=== PATIENT | female | born 1985 | race Caucasian/White ===

== ENCOUNTER 2016-11-08 10:27 | Emergency (ER) | payer OTHER ==
[2016-11-08 10:33] VITALS: BP 112/61
--- NOTE | 2016-11-08 11:39 | UC ---
Tao Cosby Alfonso, scribed for Florina Ann MD on 11/08/16 at 1119 . Dental HPI - HPI Summary HPI Summary: This patient is a 31 year old F presenting to [facility] with a chief complaint of lower dental pain since 3 days ago. She states I feel like someone hit me in the mouth. The patient rates the pain 6/10 in severity. Symptoms aggravated by eating and alleviated by nothing. Patient reports headache, and bilateral ear pain. She denies any PMHx. Patients medications reviewed this visit. Allergies noted. Checked I-STOP reference [id number], no search items - History of Current Complaint Chief Complaint: UCDentalProblem Stated Complaint: DENTAL COMPLAINT Time Seen by Provider: 11/08/16 11:08 Hx Obtained From: Patient Hx Last Menstrual Period: 11/03/16 ?: No Onset/Duration: Sudden Onset, Lasting Days - 3, Still Present Severity: Moderate Pain Intensity: 6 Pain Scale Used: 0-10 Numeric Aggravating: Chewing Alleviating: Nothing Related History: Other - Patient reports headache, and bilateral ear pain. 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 RIGHT HAND, 12/10/14, [facility] [place] [facility] [place] - Family History Known Family History: Positive: Cardiac Disease, Diabetes, Other - Asthma - Social History Alcohol Use: Rare Alcohol Amount: 1 Q 6 MONTHS Substance Use Type: Marijuana Substance Use Comment - Amount & Last Used: RARE MARIJUANA Smoking Status (MU): Never Smoked Tobacco Have You Smoked in the Last Year: No - Immunization History Most Recent Tetanus Shot: 2008 Review of Systems Constitutional: Negative Skin: Negative ENT: Dental Pain - Lower, Ear Ache Respiratory: Negative Cardiovascular: Negative Neurological: Headache All Other Systems Reviewed And Are Negative: Yes Physical Exam Triage Information Reviewed: Yes Appearance: Well-Appearing, Well-Nourished, Pain Distress Vital Signs: Initial Vital Signs Temp 98.5 F 11/08/16 10:29 Pulse 80 11/08/16 10:29 Resp 16 11/08/16 10:29 BP 112/61 11/08/16 10:29 Pulse Ox 100 11/08/16 10:29 Vital Signs Reviewed: Yes Eyes: Positive: Conjunctiva Clear ENT: Positive: Normal ENT inspection, Pharynx normal, TMs normal. Negative: Muffled/hoarse voice Dental: Positive: Other: - Swelling of the gum at tooth 25 with redness, extensive plaque, and poor dentition. Neck: Positive: Supple, Nontender, No Lymphadenopathy Respiratory: Positive: Lungs clear, Normal breath sounds, No respiratory distress, No accessory muscle use Cardiovascular: Positive: RRR, No Murmur, Pulses Normal, Brisk Capillary Refill Musculoskeletal: Positive: Strength Intact, ROM Intact Neurological: Positive: Alert Psychological Exam: Normal Skin Exam: Normal Dental Complaint Course/Dx - Course Course Of Treatment: This patient is a 31 year old F presenting to [facility] with a chief complaint of lower dental pain since 3 days ago. She states I feel like someone hit me in the mouth. The patient rates the pain 6/10 in severity. Symptoms aggravated by eating and alleviated by nothing. Patient reports headache, and bilateral ear pain. She denies any PMHx. Patients medications reviewed this visit. Allergies noted. Checked I-STOP reference [id number]. Patient will be discharged with prescription and follow up from PCP and dentist. Pt is agreeable with this plan. - Differential Dx/Diagnosis Differential Diagnosis/Dx: Dental Abscess, Dental Caries, Gingivitis Provider Diagnoses: Dental abscess. Discharge - Discharge Plan Condition: Stable Disposition: HOME Prescriptions: Amoxicillin/Clavulanate TAB* [Augmentin TAB 875*] 875 mg PO BID #28 tab traMADol TAB* [Ultram*] 50 mg PO Q6HR PRN #12 tab MDD 4 PRN Reason: Pain Patient Education Materials: Dental Abscess (ED) Referrals: Jaswinder Carroll MD [Primary Care Provider] - 2 Days Additional Instructions: FOLLOW UP WITH YOUR DENTIST SOON POSSIBLE. The documentation as recorded by the Tao giraldo Alfonso accurately reflects the service I personally performed and the decisions made by , Florina Ann MD.
== END 2016-11-08 11:35 | disposition home or self-care (01) ==
LOC: UCEAST 10:27
DX: K04.7 Periapical abscess without sinus (principal); Z88.5 Allergy status to narcotic agent; Z88.2 Allergy status to sulfonamides; F12.90 Cannabis use, unspecified, uncomplicated
CPT/HCPCS: 99212; G0463

== ENCOUNTER 2017-02-06 14:49 | Emergency (ER) | payer OTHER ==
[2017-02-06 14:56] VITALS: BP 113/59
--- NOTE | 2017-02-06 15:35 | UC ---
Throat Pain/Nasal Reji HPI - HPI Summary HPI Summary: SORE THROAT, FEVER AND WHITE SPOTS ON TONSILS SINCE THIS MORNING. NO RASHES. NO ABDOMINAL PAIN. - History of Current Complaint Chief Complaint: UCGeneralIllness Stated Complaint: SPOTS ON THROAT Time Seen by Provider: 02/06/17 15:08 Hx Obtained From: Patient Hx Last Menstrual Period: 01/28/17 Onset/Duration: Gradual Onset, Lasting Hours Severity: Moderate Associated Signs & Symptoms: Positive: Dysphagia, Hoarseness, Fever - Epiglottits Risk Factors Epiglottis Risk Factors: Negative - Allergies/Home Medications Allergies/Adverse Reactions: Allergies Allergy/AdvReac Type Severity Reaction Status Date / Time Oxycodone [From Percocet] Allergy Anaphylatic Verified 02/06/17 14:53 Shock Sulfa Antibiotics Allergy Hallucinati Verified 02/06/17 14:53 ons PMH/Surg Hx/FS Hx/Imm Hx Previously Healthy: Yes Other History Of: Negative For: Anticoagulant Therapy - Surgical History Surgical History: Yes Surgery Procedure, Year, and Place: 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 RIGHT HAND, 12/10/14, [facility] [place] - Family History Known Family History: Positive: Cardiac Disease, Diabetes, Other - Asthma - Social History Occupation: Employed Full-time Lives: With Family Alcohol Use: None Alcohol Amount: 1 Q 6 MONTHS Substance Use Type: Marijuana Substance Use Comment - Amount & Last Used: RARE MARIJUANA Smoking Status (MU): Never Smoked Tobacco Have You Smoked in the Last Year: No - Immunization History Most Recent Tetanus Shot: 2008 Review of Systems Constitutional: Fever Skin: Negative Eyes: Negative ENT: Sore Throat Respiratory: Negative Cardiovascular: Negative Gastrointestinal: Negative Genitourinary: Negative Motor: Negative Neurovascular: Negative Musculoskeletal: Negative Neurological: Negative Psychological: Negative Is Patient Immunocompromised?: No All Other Systems Reviewed And Are Negative: Yes Physical Exam Triage Information Reviewed: Yes Appearance: Well-Appearing, No Pain Distress, Well-Nourished Vital Signs: Initial Vital Signs Temp 99 F 02/06/17 14:53 Pulse 98 02/06/17 14:53 Resp 17 02/06/17 14:53 BP 113/59 02/06/17 14:53 Pulse Ox 99 02/06/17 14:53 Vital Signs Reviewed: Yes Eye Exam: Normal ENT: Positive: Pharyngeal erythema, Tonsillar swelling, Tonsillar exudate Dental Exam: Normal Neck exam: Normal Neck: Positive: Supple, Nontender, No Lymphadenopathy Respiratory Exam: Normal Respiratory: Positive: Chest non-tender, Lungs clear, Normal breath sounds, No respiratory distress, No accessory muscle use Cardiovascular Exam: Normal Cardiovascular: Positive: RRR, No Murmur, Pulses Normal Abdominal Exam: Normal Musculoskeletal Exam: Normal Musculoskeletal: Positive: Strength Intact, ROM Intact Neurological Exam: Normal Psychological Exam: Normal Skin Exam: Normal Throat Pain/Nasal Course/Dx - Differential Dx/Diagnosis Differential Diagnosis/HQI/PQRI: Pharyngitis, Tonsillitis, URI Provider Diagnoses: TONSILITIS Discharge - Discharge Plan Condition: Stable Disposition: HOME Prescriptions: Clindamycin Cap(NF) [Clindamycin Cap 300 mg Cap(NF)] 300 mg PO TID #21 cap Patient Education Materials: Tonsillitis (ED) Forms: *Gen. Provider Communication Referrals: Jaswinder Carroll MD [Primary Care Provider] -
== END 2017-02-06 15:38 | disposition home or self-care (01) ==
LOC: UCEAST 14:49
DX: J03.90 Acute tonsillitis, unspecified (principal); Z11.4 Encounter for screening for human immunodeficiency virus [HIV]
CPT/HCPCS: 36415; 86703; 87651; 99212; G0463

== ENCOUNTER 2018-03-02 10:59 | Emergency (ER) | payer OTHER ==
[2018-03-02 11:10] VITALS: BP 102/58
--- NOTE | 2018-03-02 12:09 | UC ---
UC General HPI - HPI Summary HPI Summary: has had constipation over past 3 days with occasional white appearing stool. had simlilar episode in past that resolved spontaneously - History of Current Complaint Chief Complaint: UCGU Stated Complaint: PERSONAL Time Seen by Provider: 03/02/18 11:33 Hx Obtained From: Patient Hx Last Menstrual Period: 01/28/17 Onset/Duration: Sudden Onset Timing: Intermittent Episodes Lasting: Onset Severity: Mild Current Severity: None Pain Intensity: 0 Associated Signs & Symptoms: Negative: Dizziness, Diarrhea, Melena, Nausea Similar Episode/Dx as: undiagnosed - Allergy/Home Medications Allergies/Adverse Reactions: Allergies Allergy/AdvReac Type Severity Reaction Status Date / Time oxycodone Allergy Anaphylatic Verified 03/02/18 11:11 Shock Sulfa (Sulfonamide Allergy Hallucinati Verified 03/02/18 11:11 Antibiotics) ons Home Medications: Home Medications Finasteride 5 mg PO 03/02/18 [History] Multivitamin [Multivitamins] 1 cap PO 03/02/18 [History] ValACYclovir (*) [Valtrex 1 GM(*)] 1 gm PO DAILY 03/02/18 [History Confirmed 05/19] PMH/Surg Hx/FS Hx/Imm Hx Previously Healthy: Yes Other History Of: Negative For: Anticoagulant Therapy - Surgical History Surgical History: Yes Surgery Procedure, Year, and Place: 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 [place] AD[place]ECTOMY A CHILD. RIGHT HAND, 12/10/14, [facility] [place] - Family History Known Family History: Positive: Cardiac Disease, Diabetes, Other - Asthma - Social History Occupation: Employed Full-time Lives: With Family Alcohol Use: Rare Alcohol Amount: 1 Q 6 MONTHS Substance Use Type: Marijuana Substance Use Comment - Amount & Last Used: daily Smoking Status (MU): Never Smoked Tobacco Have You Smoked in the Last Year: No - Immunization History Most Recent Tetanus Shot: 2008 Review of Systems All Other Systems Reviewed And Are Negative: Yes Constitutional: Positive: Negative. Negative: Fever, Fatigue Respiratory: Positive: Negative Cardiovascular: Positive: Negative Gastrointestinal: Negative: Abdominal Pain, Vomiting, Nausea Genitourinary: Positive: Other - white stool. Negative: Dysuria Musculoskeletal: Positive: Negative Neurological: Positive: Negative Psychological: Positive: Negative Is Patient Immunocompromised?: No Physical Exam Triage Information Reviewed: Yes Appearance: Well-Appearing, No Pain Distress, Well-Nourished Vital Signs: Initial Vital Signs Temp 98.5 F 03/02/18 11:07 Pulse 92 03/02/18 11:07 Resp 18 03/02/18 11:07 BP 102/58 03/02/18 11:07 Pulse Ox 98 03/02/18 11:07 Vital Signs Reviewed: Yes Respiratory Exam: Normal Cardiovascular Exam: Normal Abdominal Exam: Normal Abdomen Description: Positive: Nontender, No Organomegaly, Soft. Negative: Hepatomegaly, McBurney's Point Tenderness Bowel Sounds: Positive: Present Neurological Exam: Normal Psychological Exam: Normal Skin Exam: Normal Course/Dx - Differential Dx - Multi-Symptom Differential Diagnoses: Other - gastroenteritis, gall bladder disease, constipation - Diagnoses Provider Diagnosis: Abnormal feces Discharge - Sign-Out/Discharge Documenting (check all that apply): Patient Departure All imaging exams completed and their final reports reviewed: No Studies - Discharge Plan Condition: Good Disposition: HOME Patient Education Materials: Constipation (ED) Referrals: Jaswinder Carroll MD [Primary Care Provider] - 2 Days (for follow-up) Additional Instructions: drink plenty of fluids keep stool soft with high fiber diet make sure you follow through with dr. Carroll for recheck - Billing Disposition and Condition Condition: GOOD Disposition: Home
== END 2018-03-02 12:20 | disposition home or self-care (01) ==
LOC: UCEAST 10:59
DX: R19.5 Other fecal abnormalities (principal); Z88.5 Allergy status to narcotic agent; Z88.2 Allergy status to sulfonamides
CPT/HCPCS: 99211; G0463

== ENCOUNTER 2018-06-26 14:42 | Emergency (ER) | payer OTHER ==
[2018-06-26 14:59] VITALS: BP 123/68
--- NOTE | 2018-06-26 15:29 | UC ---
Cardiac HPI - HPI Summary HPI Summary: 33-year-old woman comes in with a chief complaint of chest pain. Chest pain is midsternal area. It's intermittent. Does not radiate anywhere. She is mildly short of breath with it. Occasionally she is slightly sweaty with it. She is not nauseous with. She does not have any chest pain right now. Patient's had this on and off for years. Exacerbating factor tends to be a stressful situation. When she gets away from the stress the chest tightness goes away. At worst at 7 out of 10. There is no family history of early heart attack. She does not have any history of pulmonary embolus or DVT. Occasionally she will have the feeling of a palpitation drain these episodes where she feels a skipped beat or an extra beat. Sometimes she feels lightheaded during these episodes. She has never passed out. - History of Current Complaint Chief Complaint: UCChestPain Stated Complaint: CHEST PAIN Time Seen by Provider: 06/26/18 15:06 Hx Last Menstrual Period: 3.5 weeks Pain Intensity: 0 - Allergy/Home Medications Allergies/Adverse Reactions: Allergies Allergy/AdvReac Type Severity Reaction Status Date / Time clindamycin Allergy Severe rash, Verified 06/26/18 15:00 hives, full body oxycodone Allergy Anaphylatic Verified 03/02/18 11:11 Shock Sulfa (Sulfonamide Allergy Hallucinati Verified 03/02/18 11:11 Antibiotics) ons PMH/Surg Hx/FS Hx/Imm Hx Previously Healthy: Yes Other History Of: Negative For: Anticoagulant Therapy - Surgical History Surgical History: Yes Surgery Procedure, Year, and Place: 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 RIGHT HAND, 12/10/14, [facility] [place] - Family History Known Family History: Positive: Cardiac Disease, Diabetes, Other - Asthma - Social History Alcohol Use: Rare Alcohol Amount: 1 Q 6 MONTHS Substance Use Type: None Substance Use Comment - Amount & Last Used: daily Smoking Status (MU): Never Smoked Tobacco Have You Smoked in the Last Year: No - Immunization History Most Recent Tetanus Shot: 2008 Review of Systems All Other Systems Reviewed And Are Negative: Yes Constitutional: Positive: Negative Skin: Positive: Negative Eyes: Positive: Negative ENT: Positive: Negative Respiratory: Positive: Shortness Of Breath Cardiovascular: Positive: Palpitations, Chest Pain Gastrointestinal: Positive: Negative. Negative: Nausea Motor: Positive: Negative Neurovascular: Positive: Negative Musculoskeletal: Positive: Negative. Negative: Calf Tenderness, Edema Neurological: Positive: Negative Psychological: Positive: Anxious Is Patient Immunocompromised?: No Physical Exam Triage Information Reviewed: Yes Appearance: Well-Appearing, No Pain Distress, Well-Nourished Vital Signs: Initial Vital Signs Temp 98.6 F 06/26/18 14:52 Pulse 72 06/26/18 14:52 Resp 16 06/26/18 14:52 BP 123/68 06/26/18 14:52 Pulse Ox 100 06/26/18 14:52 Vital Signs Reviewed: Yes Eye Exam: Normal Eyes: Positive: Conjunctiva Clear ENT: Positive: Pharynx normal, TM dull - right Neck exam: Normal Neck: Positive: Supple, Nontender Respiratory: Positive: Lungs clear, Normal breath sounds, No respiratory distress Cardiovascular: Positive: RRR Musculoskeletal Exam: Normal Musculoskeletal: Positive: Strength Intact, ROM Intact, No Edema, Other: - No calf tenderness Neurological Exam: Normal Neurological: Positive: Alert, Muscle Tone Normal Psychological Exam: Normal Psychological: Positive: Age Appropriate Behavior Skin Exam: Normal Diagnostics - EKG Cardiac Rate: Bradycardia - at 1550 Cardiac Rhythm: Sinus: Normal - 54 bpm Ectopy: None - slow sinus arrhythmia ST Segment: Normal - Assessment/Plan Course Of Treatment: Patient Name: DAYA MCINTYRE Medical Record#: [id number] Ordering Physician: Reynaldo Samayoa MD Acct.#: [id number] : 1985 Age: 33 Sex: F Location: [facility] Exam Date: 06/26/18 1522 ADM Status: REG ER Order Information: CHEST PA LAT 2 [facility] Accession Number: [id number] CPT: 89961 HISTORY: intermittent chest pain COMPARISONS: August 23, 2014 VIEWS: 4: Frontal dual-energy and lateral views of the chest. FINDINGS: CARDIOMEDIASTINAL SILHOUETTE: The cardiomediastinal silhouette is normal. BRIAN: The brian are normal. PLEURA: The costophrenic angles are sharp. No pleural abnormalities are noted. LUNG PARENCHYMA: The lungs are clear. ABDOMEN: The upper abdomen is clear. There is no subphrenic gas. BONES AND SOFT TISSUES: No bone or soft tissue abnormalities are noted. OTHER: None. IMPRESSION: NO ACTIVE CARDIOPULMONARY DISEASE. <Electronically signed by Fermin Atkins MD in OV> 06/26/18 1609 I discussed the EKG and chest x-ray results with the patient. Patient has appointment with her primary care doctor on July 03, 2018 for the symptoms. The pain is intermittent and occurs in social stressful situations. She's had the episodes of chest tightness for more than a half an hour without any residual symptoms. Palpitations are intermittent. CRP CBC CMP and magnesium and TSH are all pending. PERC score zero. I discussed with the patient that if she has more chest pain shortness of breath or feels worse she needs to go to the emergency department for further evaluation and care. - Clinical Impression Provider Diagnosis: Chest pain, Shortness of breath, Palpitations Discharge - Sign-Out/Discharge Documenting (check all that apply): Patient Departure All imaging exams completed and their final reports reviewed: Yes - Discharge Plan Condition: Stable Disposition: HOME Patient Education Materials: Chest Pain (ED), Heart Palpitations (ED), Shortness of Breath (ED) Referrals: Jaswinder Carroll MD [Primary Care Provider] - Additional Instructions: FOLLOW UP WITH YOUR DOCTOR ON 07/03/18 SCHEDULED. GO TO THE EMERGENCY DEPARTMENT FOR ANY WORSENING OF YOUR CONDITION; PAIN, SHORTNESS OF BREATH, YOU FEEL LIKE PASSING OUT OR QUESTIONS OR CONCERNS. - Billing Disposition and Condition Condition: STABLE Disposition: Home
[2018-06-26 18:54] LABS: ABS Basophils 0 10^3/ul (0-0.2); ABS Eosinophils 0.2 10^3/ul (0-0.6); ABS Lymphocytes 2.4 10^3/ul (1.0-4.8); ABS Monocytes 0.5 10^3/ul (0-0.8); ABS Neutrophils 2.4 10^3/ul (1.5-7.7); ABS Nucleated RBC 0 10^3/ul; Eosinophil % 3.7 %; Hematocrit 36 % (33-41); Hemoglobin 12.2 g/dL (12.0-16.0); Lymphocyte % 43.7 %; Mean Corpuscular HGB Conc 34 g/dL (31-36); Mean Corpuscular Hemoglobin 31 pg (27-31); Mean Corpuscular Volume 92 fL (80-97); Mean Platelet Volume 9.7 fL (7.4-10.4); Nucleated Red Blood Cells % 0.1; Platelet Count 195 10^3/uL (150-450); Red Blood Count 3.87 10^6 /uL (3.70-4.87); Red Cell Distribution Width 13 % (10.5-15); White Blood Count 5.6 10^3/uL (3.5-10.8)
[2018-06-26 18:58] LABS: Albumin 4.4 g/dL (3.2-5.2); Anion Gap 5 mmol/L (2-11); CO2 Carbon Dioxide 28 mmol/L (22-32); Chloride 107 mmol/L (101-111); Magnesium 1.8 mg/dL (1.9-2.7); Potassium 4.1 mmol/L (3.5-5.0); Sodium 140 mmol/L (135-145)
[2018-06-26 19:04] LABS: ALT 16 U/L (7-52); AST 17 U/L (13-39); Albumin/Globulin Ratio 2.2 (1-3); Alkaline Phosphatase 70 U/L (34-104); BUN/Creatinine Ratio 28.8 (8-20); Blood Urea Nitrogen 23 mg/dL (6-24); C Reactive Protein < 1.00 mg/L (<8.01); EGFR Non-African American 82.6 (>60); Glucose 80 mg/dL (70-100); Total Protein 6.4 g/dL (6.4-8.9)
[2018-06-26 19:19] LABS: TSH (Thyroid Stimulating Horm) 0.61 mcIU/mL (0.34-5.60)
== END 2018-06-26 16:30 | disposition home or self-care (01) ==
LOC: UCEAST 14:42
DX: R07.9 Chest pain, unspecified (principal); R06.02 Shortness of breath; R00.2 Palpitations; Z88.3 Allergy status to other anti-infective agents; Z88.2 Allergy status to sulfonamides; Z88.5 Allergy status to narcotic agent
CPT/HCPCS: 36415; 71046; 80053; 83735; 84443; 85025; 86140; 99211; G0463

== ENCOUNTER 2018-08-02 09:42 | Emergency (ER) | payer OTHER ==
--- NOTE | 2018-08-02 10:12 | ED ---
Influenza-Like Illness - HPI Summary HPI Summary: Pt. is a 33 y.o female who presents to the ER for ongoing cough, congestion, and headache x 6 days. Pt. denies past medical hx. Pt. notes her symptoms are improving. Pt. notes cough is nonproductive. She notes subjective fever and chills. Denies abd. pain, N/V/D, urinary sxs. Motrin improves h/a. Sxs are mild in severity. No current modifying factors. - History of Current Complaint Chief Complaint: EDUpperRespComplaint Time Seen by Provider: 08/02/18 09:52 Hx Obtained From: Patient - Allergy/Home Medications Allergies/Adverse Reactions: Allergies Allergy/AdvReac Type Severity Reaction Status Date / Time clindamycin Allergy Severe rash, Verified 08/02/18 09:48 hives, full body oxycodone Allergy Anaphylatic Verified 08/02/18 09:48 Shock Sulfa (Sulfonamide Allergy Hallucinati Verified 08/02/18 09:48 Antibiotics) ons PMH/Surg Hx/FS Hx/Imm Hx Previously Healthy: Yes Endocrine/Hematology History: Denies: Hx Anticoagulant Therapy, Hx Diabetes, Hx Thyroid Disease Cardiovascular History: Denies: Hx Hypertension, Hx Pacemaker/ICD, Other Cardiovascular Problems/ Disorders Respiratory History: Denies: Hx Asthma, Hx Chronic Obstructive Pulmonary Disease (COPD), Other Respiratory Problems/Disorders GI History: Denies: Hx Ulcer, Other GI Disorders History: Reports: Hx Kidney Stones - UNSURE WHEN Denies: Hx Renal Disease Musculoskeletal History: Denies: Other Musculoskeletal History Sensory History: Reports: Hx Contacts or Glasses - GLASSES Denies: Hx Hearing Aid Opthamlomology History: Reports: Hx Contacts or Glasses - GLASSES Neurological History: Denies: Hx Dementia, Hx Seizures, Other Neuro Impairments/Disorders Psychiatric History: Reports: Hx Anxiety - RECENT Denies: Hx Substance Abuse - Surgical History Surgery Procedure, Year, and Place: 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 RIGHT HAND, 12/10/14, [facility] [place] Hx Anesthesia Reactions: No Infectious Disease History: No Infectious Disease History: Denies: Hx Clostridium Difficile, Hx Hepatitis, Hx Human Immunodeficiency Virus (HIV), Hx of Known/Suspected MRSA, Hx Shingles, Hx Tuberculosis, Hx Known/ Suspected VRE, Hx Known/Suspected VRSA, History Other Infectious Disease, Traveled Outside the [place] in Last 30 Days - Family History Known Family History: Positive: Cardiac Disease, Diabetes, Other - Asthma - Social History Occupation: Employed Full-time Lives: With Family Alcohol Use: None Alcohol Amount: 1 Q 6 MONTHS Substance Use Type: Reports: Marijuana Substance Use Comment - Amount & Last Used: daily Smoking Status (MU): Never Smoked Tobacco Have You Smoked in the Last Year: No Review of Systems Positive: Chills Eyes: Negative Positive: Nasal Discharge Cardiovascular: Negative Positive: Cough. Negative: Shortness Of Breath Gastrointestinal: Negative Negative: Abdominal Pain, Vomiting, Diarrhea, Nausea Genitourinary: Negative Negative: dysuria Positive: Myalgia Skin: Negative Negative: Rash Positive: Headache All Other Systems Reviewed And Are Negative: Yes Physical Exam Triage Information Reviewed: Yes Vital Signs On Initial Exam: Initial Vitals Temp Pulse Resp BP Pulse Ox 99.2 F 86 16 111/78 99 08/02/18 09:45 08/02/18 09:45 08/02/18 09:45 08/02/18 09:45 08/02/18 09:45 Vital Signs Reviewed: Yes Appearance: Positive: Well-Appearing - Pt. sitting up in bed in NAD. Skin: Positive: Warm, Dry Head/Face: Positive: Normal Head/Face Inspection Eyes: Positive: Normal, EOMI, MARTHA ENT: Positive: Pharyngeal erythema, TMs normal, Other - nasal congestio noted. Negative: Tonsillar swelling, Tonsillar exudate Neck: Positive: Supple. Negative: Nontender, Nuchal Rigidity Respiratory/Lung Sounds: Positive: Clear to Auscultation, Breath Sounds Present. Negative: Rales, Rhonchi, Stridor, Wheezes Cardiovascular: Positive: Normal, RRR Neurological: Positive: Normal, CN Intact II-III Psychiatric: Positive: Affect/Mood Appropriate Diagnostics - Vital Signs Vital Signs Temp Pulse Resp BP Pulse Ox 08/02/18 09:45 99.2 F 86 16 111/78 99 - Laboratory Lab Statement: Any lab studies that have been ordered have been reviewed, and results considered in the medical decision making process. Flu Symptom Course/Dx - Course Course Of Treatment: Pt. presenting with above symptoms. Pt. notes her sxs are starting to improve. VS normal. Suspect viral etiology. No testing ordered today. Advised increase fluids and rest. Tylenol or motrin for discomfort as directed. To f.u with PCP if sxs persist. Work excuse given. Pt. undertstands and agrees with plan. - Diagnoses Differential Diagnosis/HQI/PQRI: Positive: Influenza, Pneumonia, Upper Respiratory Infection Provider Diagnoses: Viral respiratory infection Discharge - Sign-Out/Discharge Documenting (check all that apply): Patient Departure Patient Received Moderate/Deep Sedation with Procedure: No - Discharge Plan Condition: Good Disposition: HOME Patient Education Materials: Viral Syndrome (ED) Forms: *Work Release Referrals: Jaswinder Carroll MD [Primary Care Provider] - Additional Instructions: Follow up with PCP if symptoms persist Increase fluids and rest Tylenol or Motrin for pain as directed Return to ER if symptoms change or worsen - Billing Disposition and Condition Condition: GOOD Disposition: Home
[2018-08-02 10:15] VITALS: BP 118/67
== END 2018-08-02 10:14 | disposition home or self-care (01) ==
LOC: ED 09:42
DX: J06.9 Acute upper respiratory infection, unspecified (principal); F41.9 Anxiety disorder, unspecified; Z88.5 Allergy status to narcotic agent; Z88.3 Allergy status to other anti-infective agents; Z88.2 Allergy status to sulfonamides
CPT/HCPCS: 99281

== ENCOUNTER 2018-09-21 17:07 | Emergency (ER) | payer OTHER ==
--- NOTE | 2018-09-21 17:24 | UC ---
Hand/Wrist HPI - HPI Summary HPI Summary: 33 y/o female presents to the urgent care c/o - History Of Current Complaint Stated Complaint: R WRIST INJURY Time Seen by Provider: 09/21/18 17:21 Hx Obtained From: Patient ?: No - Pt is on her period now declines test Onset/Duration: Sudden Onset, Lasting Hours - 1hrs ago fell while skating, Still Present Severity Initially: Moderate Severity Currently: Moderate Pain Intensity: 8 Pain Scale Used: 0-10 Numeric Character Of Pain: Sharp - around radial side of wrist Aggravating Factor(s): Movement, Lifting, Flexion, Extension, Pulling Alleviating Factor(s): Rest, Ice Associated Signs And Symptoms: Positive: Negative. Negative: Bruising, Fever, Weakness, Numbness/Tingling Related History: Dominant Hand Right - Allergies/Home Medications Allergies/Adverse Reactions: Allergies Allergy/AdvReac Type Severity Reaction Status Date / Time clindamycin Allergy Severe rash, Verified 09/21/18 17:26 hives, full body orange juice Allergy Severe diaRRHEA, Verified 09/21/18 17:26 ABDPAIN oxycodone Allergy Anaphylatic Verified 09/21/18 17:26 Shock Sulfa (Sulfonamide Allergy Hallucinati Verified 09/21/18 17:26 Antibiotics) ons Home Medications: Home Medications Duloxetine HCl [Cymbalta] 40 mg PO DAILY 09/21/18 [History Confirmed 09/21/18] PMH/Surg Hx/FS Hx/Imm Hx Previously Healthy: Yes Other Respiratory History: sleep apnea Other History Of: Negative For: Anticoagulant Therapy - Surgical History Surgical History: Yes Surgery Procedure, Year, and Place: 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 RIGHT HAND, 12/10/14, [facility] [place] - Family History Known Family History: Positive: Cardiac Disease, Diabetes, Other - Asthma - Social History Occupation: Employed Full-time Lives: With Family Alcohol Use: None Alcohol Amount: 1 Q 6 MONTHS Substance Use Type: Marijuana Substance Use Comment - Amount & Last Used: daily Smoking Status (MU): Never Smoked Tobacco Have You Smoked in the Last Year: No - Immunization History Most Recent Tetanus Shot: 2008 Review of Systems All Other Systems Reviewed And Are Negative: Yes Constitutional: Positive: Negative Skin: Positive: Negative Eyes: Positive: Negative ENT: Positive: Negative Respiratory: Positive: Negative Cardiovascular: Positive: Negative Gastrointestinal: Positive: Negative Genitourinary: Positive: Negative Motor: Positive: Negative Neurovascular: Positive: Negative Musculoskeletal: Positive: Decreased ROM - right wrist, Other: - right wrist pain s/p fall Neurological: Positive: Negative Psychological: Positive: Negative Is Patient Immunocompromised?: No Physical Exam - Summary Physical Exam Summary: Vital Signs Reviewed: Yes General: Well-Appearing, No Pain Distress, Well-Nourished - female w/o any apparent distress Eyes: Positive: Conjunctiva Clear - PERRLA, EOMI ENT: Positive: Normal ENT inspection, Hearing grossly normal, Pharynx normal, TMs normal, Uvula midline Neck: Positive: Supple, Nontender, No Lymphadenopathy Respiratory: Positive: Chest non-tender, Lungs clear, Normal breath sounds, No respiratory distress Cardiovascular: Positive: RRR, No Murmur, Pulses Normal, Brisk Capillary Refill Abdomen Description: Positive: Nontender, No Organomegaly, Soft. Negative: CVA Tenderness (R), CVA Tenderness (L) Bowel Sounds: Positive: Present Musculoskeletal: Positive: Strength Intact, Other: Neurological Exam: Normal Musculoskeletal: Positive: Wrist: the R wrist is without obvious asymmetry or deformity when compared to the L wrist. No surface trauma, open wounds, swelling , or obvious deformity. No overlying erythema or warmth. No bony crepitus. Point tenderness over the thenar eminence and ventral side of wrist. No scaphoid fullness or tenderness to direct palpation or axial load. Decreased ROM due to pain. Motor/sensory function of ulnar, radial, median nerves intact. Ulnar and radial pulses intact. Psychological Exam: Normal Skin Exam: Normal Triage Information Reviewed: Yes Hand/Wrist Course/Dx - Differential Dx/Diagnosis Differential Diagnosis/HQI/PQRI: Cellulitis, Contusion, Fracture, Sprain, Strain , Tendonitis, Tenosynovitis Provider Diagnosis: Right wrist injury, Right wrist sprain Discharge - Sign-Out/Discharge Documenting (check all that apply): Patient Departure - D/C home All imaging exams completed and their final reports reviewed: Yes - Discharge Plan Condition: Stable Disposition: HOME Prescriptions: Ibuprofen TAB* [Motrin TAB* 600 MG] 600 mg PO Q6H PRN #30 tab PRN Reason: Pain Patient Education Materials: Wrist Sprain (ED) Referrals: Jaswinder Carroll MD [Primary Care Provider] - 3 Days Francisco Lima MD [Medical Doctor] - 1 Week Additional Instructions: 1-Please take medications as directed to alleviate pain and swelling. 2-Please apply ice, keep your wrist immobilized with the splint. Avoid heavy lifting or strenuous exercise 3- Please f/u with Orthopedic Dr Lima or your PCP in 1 week is not improvement of symptoms for further evaluation and treatment. - Billing Disposition and Condition Condition: STABLE Disposition: Home
[2018-09-21 17:26] VITALS: BP 107/70
[2018-09-21] MEDS ORDERED: Ibuprofen TAB* 400 MG PO ONE (17:50)
== END 2018-09-21 18:11 | disposition home or self-care (01) ==
LOC: UCEAST 17:07
DX: S63.501A Unspecified sprain of right wrist, initial encounter (principal); X58.XXXA Exposure to other specified factors, initial encounter; Y92.9 Unspecified place or not applicable; Z88.5 Allergy status to narcotic agent; Z88.0 Allergy status to penicillin
CPT/HCPCS: 99213; A9270-GY; G0463

== ENCOUNTER 2018-12-11 11:03 | Emergency (ER) | payer OTHER ==
--- NOTE | 2018-12-11 11:14 | ED ---
Dizziness - HPI Summary HPI Summary: 33 year old F presenting to [facility] with a chief complaint of constant dizziness since 3 days ago. Patient states she feels off balance. Patient states she does not think room is spinning and she doesn't feel as if she's going to lose consciousness. Patient states that last week, she had one episode of dizziness which resolved. Patient denies fever, blurred vision, neck stiffness. Patient states that when applying deodorant, she feels pressure and pinch at her left armpit. Patient reports headache located on the back of the right side of her head and behind her eyes. Patient reports hearing loss and occasional ringing in her ears for the last several months. Patient reports bilateral arm and bilateral leg weakness and numbness for the last several weeks for which she has been seeing Dr. Callejas, ENT. Patient states she had brain MRI done recently which was normal. Patient states she is waiting on bloodwork results. The patient rates the pain 0/10 in severity. Symptoms aggravated by change head position and talking. Symptoms alleviated by nothing. Patient states she has hx anxiety for which she takes Cymbalta. Patient denies recent infections, colds, GI symptoms. Medications reviewed. Allergies noted. - History Of Current Complaint Chief Complaint: EDDizziness Stated Complaint: DIZZY PER PT Time Seen by Provider: 12/11/18 11:07 Hx Obtained From: Patient Onset/Duration: Still Present Timing: Days - 3 Severity Currently: None Aggravating Factor(s): Other - change head position and talking Alleviating Factor(s): Nothing Associated Signs And Symptoms: Positive: Negative - fever, blurred vision, neck stiffness, Other: - Headache, hearing loss, occasional ringing in her ears, bilateral arm and bilateral leg weakness and numbness - Allergies/Home Medications Allergies/Adverse Reactions: Allergies Allergy/AdvReac Type Severity Reaction Status Date / Time clindamycin Allergy Severe rash, Verified 12/11/18 11:05 hives, full body orange juice Allergy Severe diaRRHEA, Verified 12/11/18 11:05 ABDPAIN oxycodone Allergy Anaphylatic Verified 12/11/18 11:05 Shock Sulfa (Sulfonamide Allergy Hallucinati Verified 12/11/18 11:05 Antibiotics) ons PMH/Surg Hx/FS Hx/Imm Hx Endocrine/Hematology History: Denies: Hx Anticoagulant Therapy, Hx Diabetes, Hx Thyroid Disease Cardiovascular History: Denies: Hx Hypertension, Hx Pacemaker/ICD, Other Cardiovascular Problems/ Disorders Respiratory History: Reports: Hx Sleep Apnea Denies: Hx Asthma, Hx Chronic Obstructive Pulmonary Disease (COPD), Other Respiratory Problems/Disorders GI History: Denies: Hx Ulcer, Other GI Disorders History: Reports: Hx Kidney Stones - UNSURE WHEN Denies: Hx Renal Disease Musculoskeletal History: Denies: Other Musculoskeletal History Sensory History: Reports: Hx Contacts or Glasses - GLASSES Denies: Hx Hearing Aid Opthamlomology History: Reports: Hx Contacts or Glasses - GLASSES Neurological History: Denies: Hx Dementia, Hx Seizures, Other Neuro Impairments/Disorders Psychiatric History: Reports: Hx Anxiety - RECENT, Hx Panic Disorder - ANXIETY Denies: Hx Substance Abuse - Surgical History Surgery Procedure, Year, and Place: 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 ADENOIDECTOMY A CHILD. RIGHT HAND, 12/10/14, [facility] [place] Hx Anesthesia Reactions: No Infectious Disease History: No Infectious Disease History: Denies: Hx Clostridium Difficile, Hx Hepatitis, Hx Human Immunodeficiency Virus (HIV), Hx of Known/Suspected MRSA, Hx Shingles, Hx Tuberculosis, Hx Known/ Suspected VRE, Hx Known/Suspected VRSA, History Other Infectious Disease, Traveled Outside the [place] in Last 30 Days - Family History Known Family History: Positive: Cardiac Disease, Diabetes, Other - Asthma - Social History Alcohol Use: None Hx Substance Use: Yes Substance Use Type: Reports: Marijuana Substance Use Comment - Amount & Last Used: daily Hx Tobacco Use: No Smoking Status (MU): Never Smoked Tobacco Have You Smoked in the Last Year: No Review of Systems Negative: Fever Negative: Blurred Vision Positive: Other - hearing loss, occasional ringing in her ears Neurological: Negative - neck stiffness, Other - Dizziness Positive: Headache, Weakness - bilateral arms, bilateral legs, Numbness - bilateral arms, bilateral legs All Other Systems Reviewed And Are Negative: Yes Physical Exam - Summary Physical Exam Summary: Constitutional: Well-developed, Well-nourished, Alert. (-) Distressed. Patient appears jittery Skin: Warm, Dry HENT: Normocephalic; Atraumatic Eyes: Conjunctiva normal Neck: Musculoskeletal ROM normal neck. (-) JVD, (-) Stridor, (-) Tracheal deviation Cardio: Rhythm regular, rate normal, Heart sounds normal; Intact distal pulses; The pedal pulses are 2+ and symmetric. Radial pulses are 2+ and symmetric. (-) Murmur Pulmonary/Chest wall: Effort normal. (-) Respiratory distress, (-) Wheezes, (-) Rales Abd: Soft. (-) Tenderness, (-) Distension, (-) Guarding, (-) Rebound Musculoskeletal: (-) Edema Lymph: (-) Cervical adenopathy Neuro: Alert, Oriented x3, Strength normal, Cranial nerves II-XII are grossly intact. (-) Dysmetria, (-) Nystagmus, (-) Ataxia by finger to nose testing, (-) Sensory deficit. Psych: Mood and affect Normal NIH: 0 Triage Information Reviewed: Yes Vital Signs On Initial Exam: Initial Vitals Temp Pulse Resp BP Pulse Ox 98.6 F 73 16 127/78 100 12/11/18 11:05 12/11/18 11:05 12/11/18 11:05 12/11/18 11:05 12/11/18 11:05 Vital Signs Reviewed: Yes Diagnostics - Vital Signs Vital Signs Temp Pulse Resp BP Pulse Ox 12/11/18 11:05 98.6 F 73 16 127/78 100 - Laboratory Result Diagrams: 12/11/18 11:31 12/11/18 11:31 Lab Statement: Any lab studies that have been ordered have been reviewed, and results considered in the medical decision making process. - EKG 1123 Cardiac Rate: Bradycardia - 44 BPM EKG Rhythm: Sinus Bradycardia Summary of EKG Findings: Sinus bradycardia, 2 atrial premature complexes National Institutes Of Health - NIH Scale Level of Consciousness: Alert/Keenly Responsive Ask Patient the Month and His/Her Age: Both Correct Ask Pt to Open/Close Eyes and Reel Slitter/Release Non-Paretic Hand: Both Correctly Best Gaze (Only Horizontal Eye Movement): Normal Visual Field Testing: No Visual Loss Facial Paresis-Pt to Smile & Close Eyes or Grimace Symmetry: Normal/Symmetrical Motor Function - Right Arm: No Drift-Holds 10 Seconds Motor Function - Left Arm: No Drift-Holds 10 Seconds Motor Function - Right Leg: No Drift-Holds 10 Seconds Motor Function - Left Leg: No Drift-Holds 10 Seconds Limb Ataxia-Must be out of Proportion to Weakness Present: Absent Sensory (Use Pinprick to Test Arms/Legs/Trunk/Face): Normal Best Language (Describe Picture, Name Items): No Aphasia Dysarthria (Read Several Words): Normal Extinction and Inattention: No Abnormality Total Score: 0 Dizzy Course/Dx - Course Course Of Treatment: Patient is here with multiple nondescript symptoms that have been occurring for the past couple months. Patient's and worked up as an outpatient with a negative MRI of her brain roughly 2 weeks ago. Patient had bloodwork performed at the ENTs office this week. Patient came in for her vertigo. Patient has a normal neurologic exam here. Patient had blood work performed which grossly unremarkable. Patient is given by mouth Valium for vertigo. Patient was given neurology for follow-up - Diagnoses Provider Diagnoses: Paresthesia, Vertigo, Headache Discharge ED - Sign-Out/Discharge Documenting (check all that apply): Patient Departure - Discharge Patient Received Moderate/Deep Sedation with Procedure: No - Discharge Plan Condition: Stable Disposition: HOME Prescriptions: Meclizine TAB* [Antivert 12.5 TAB*] 25 mg PO TID PRN #20 tab PRN Reason: vertigo Patient Education Materials: Vertigo (ED), Paresthesia (ED), General Headache ( ED) Referrals: Jaswinder Carroll MD [Primary Care Provider] - Aman Dhillon MD [Medical Doctor] - Additional Instructions: PLEASE RETURN TO EMERGENCY DEPARTMENT FOR ANY NEW OR WORSENING SYMPTOMS. Please follow up with your primary care physician and Dr. Dhillon, neurology. Please make all follow-ups in 1-3 days unless I advise you otherwise. - Billing Disposition and Condition Condition: STABLE Disposition: Home - Attestation Statements Document Initiated by Elizabeth: Yes Documenting Scribe: Dianne Newby Provider For Whom Elizabeth is Documenting (Include Credential): Rubin Hanks MD Scribe Attestation: IDianne, scribed for Rubin Hanks MD on 12/11/18 at 1828. Scribe Documentation Reviewed: Yes Provider Attestation: The documentation as recorded by the Dianne giraldo accurately reflects the service I personally performed and the decisions made by me, Rubin Hanks MD Status of Scribe Document: Viewed
[2018-12-11 11:38] LABS: ABS Basophils 0.1 10^3/ul (0-0.2); ABS Eosinophils 0.2 10^3/ul (0-0.6); ABS Lymphocytes 1.9 10^3/ul (1.0-4.8); ABS Monocytes 0.5 10^3/ul (0-0.8); ABS Neutrophils 2.7 10^3/ul (1.5-7.7); Eosinophil % 2.9 %; Hematocrit 36 % (35-47); Hemoglobin 12.8 g/dL (12.0-16.0); Lymphocyte % 35.2 %; Mean Corpuscular HGB Conc 35 g/dL (31-36); Mean Corpuscular Hemoglobin 32 pg (27-31); Mean Corpuscular Volume 91 fL (80-97); Mean Platelet Volume 9.3 fL (7.4-10.4); Platelet Count 201 10^3/uL (150-450); Red Blood Count 3.98 10^6 /uL (3.70-4.87); Red Cell Distribution Width 12 % (10-15); White Blood Count 5.3 10^3/uL (3.5-10.8)
[2018-12-11 12:11] LABS: ALT 33 U/L (7-52); AST 24 U/L (13-39); Albumin 4.4 g/dL (3.2-5.2); Alkaline Phosphatase 107 U/L (34-104); Anion Gap 6 mmol/L (2-11); BUN/Creatinine Ratio 15.6 (8-20); Blood Urea Nitrogen 12 mg/dL (6-24); CO2 Carbon Dioxide 28 mmol/L (22-32); Calcium 9.3 mg/dL (8.6-10.3); Chloride 105 mmol/L (101-111); Creatine Kinase 100 U/L (10-223); EGFR African American 104.5 (>60); EGFR Non-African American 86.3 (>60); Globulin 2.2 g/dL (2-4); Glucose 99 mg/dL (70-100); Potassium 3.6 mmol/L (3.5-5.0); Sodium 139 mmol/L (135-145); Total Protein 6.6 g/dL (6.4-8.9)
[2018-12-11 12:17] LABS: HCG Pregnancy < 0.60 mIU/mL
[2018-12-11] MEDS: Diazepam TAB(*) 5 MG PO ONE ×2 (12:17→12:21)
[2018-12-11 12:21] LABS: TSH (Thyroid Stimulating Horm) 1.62 mcIU/mL (0.34-5.60)
[2018-12-11 12:43] VITALS: BP 107/69
== END 2018-12-11 12:43 | disposition home or self-care (01) ==
LOC: ED 11:03
DX: R42 Dizziness and giddiness (principal); R20.2 Paresthesia of skin; R51 Headache; F41.9 Anxiety disorder, unspecified; Z79.899 Other long term (current) drug therapy; Z88.1 Allergy status to other antibiotic agents; Z88.5 Allergy status to narcotic agent; Z88.2 Allergy status to sulfonamides
CPT/HCPCS: 36415; 80053; 82550; 84443; 84484; 84702; 85025; 93005; 99283; A9270-GY

== ENCOUNTER 2019-01-05 14:47 | Emergency (ER) | payer OTHER ==
[2019-01-05 15:06] VITALS: BP 100/58
--- NOTE | 2019-01-05 15:32 | UC ---
Elbow Pain - HPI Summary HPI Summary: Patient is a 33yo female presenting with right elbow pain x2 hours after slipping in the mud and landing her elbow on a rock. Patient states she iced it initially but the pain as worsened some. She states she is here to make sure it is not broken. Notes some pain radiation to right shoulder and middle of forearm. Notes numbness and tingling but says that is normal because she has neuropathy. Notes bruising. Denies swelling. Denies decreased ROM. Denies decreased strength. - History of Current Complaint Chief Complaint: UCUpperExtremity Stated Complaint: RT ELBOW PAIN Hx Obtained From: Patient Hx Last Menstrual Period: 12/11/2018 Severity Initially: Mild Severity Currently: Mild Pain Intensity: 4 Pain Scale Used: 0-10 Numeric - Allergies/Home Medications Allergies/Adverse Reactions: Allergies Allergy/AdvReac Type Severity Reaction Status Date / Time clindamycin Allergy Severe rash, Verified 12/11/18 11:05 hives, full body orange juice Allergy Severe diaRRHEA, Verified 12/11/18 11:05 ABDPAIN oxycodone Allergy Anaphylatic Verified 12/11/18 11:05 Shock Sulfa (Sulfonamide Allergy Hallucinati Verified 12/11/18 11:05 Antibiotics) ons PMH/Surg Hx/FS Hx/Imm Hx Other History Of: Negative For: Anticoagulant Therapy - Surgical History Surgical History: Yes Surgery Procedure, Year, and Place: 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 CH[place]. [place], [place]10[place] [facility] [place] - Family History Known Family History: Positive: Cardiac Disease, Diabetes, Other - Asthma - Social History Alcohol Use: None Alcohol Amount: 1 Q 6 MONTHS Substance Use Type: Marijuana Substance Use Comment - Amount & Last Used: daily Smoking Status (MU): Never Smoked Tobacco Have You Smoked in the Last Year: No - Immunization History Most Recent Tetanus Shot: 2008 Review of Systems All Other Systems Reviewed And Are Negative: Yes Constitutional: Positive: Negative Skin: Positive: Bruising Respiratory: Positive: Negative Cardiovascular: Positive: Negative Motor: Positive: Negative Neurovascular: Positive: Negative Musculoskeletal: Positive: Arthralgia. Negative: Decreased ROM, Edema, Myalgia Neurological: Positive: Paresthesia, Numbness Physical Exam Triage Information Reviewed: Yes Appearance: Well-Appearing, No Pain Distress, Well-Nourished Vital Signs: Initial Vital Signs Temp 98.4 F 10/07/19 15:02 Pulse 75 01/05/19 15:02 Resp 18 01/05/19 15:02 BP 100/58 01/05/19 15:02 Pulse Ox 100 01/05/19 15:02 Vital Signs Reviewed: Yes Eyes: Positive: Conjunctiva Clear ENT: Positive: Hearing grossly normal Neck: Positive: Supple Respiratory: Positive: No respiratory distress Cardiovascular: Positive: Pulses Normal, Brisk Capillary Refill Musculoskeletal: Positive: Strength Intact, ROM Intact, No Edema, Other: - tenderness to palpation of right olecranon. no tenderness to palpation of hand, wrist, forearm, upper arm, or shoulder. Neurological: Positive: Alert Psychological: Positive: Age Appropriate Behavior Skin: Positive: Other - ecchymosis noted over olecranon Diagnostics - Radiology rt elbow xray Radiology Interpretation Completed By: Radiologist Summary of Radiographic Findings: IMPRESSION: No fracture of the right elbow is noted. No joint effusion is noted. Soft tissue swelling at the olecranon bursa is noted. Elbow Pain Course/Dx - Course Course Of Treatment: Patient's xrays were negative. Patient denied wanting any ice or ibuprofen here. Instructed her to use rest, ice, elevation, and compression for symptomatic relief. Instructed her to follow up with ortho if pain persists. Patient voiced understanding and agreed to the plan. - Differential Dx/Diagnosis Provider Diagnosis: Elbow contusion Discharge ED - Sign-Out/Discharge Documenting (check all that apply): Patient Departure All imaging exams completed and their final reports reviewed: Yes - Discharge Plan Condition: Stable Disposition: HOME Referrals: Jaswinder Carroll MD [Primary Care Provider] - If Needed Yvan Jackson MD [Medical Doctor] - If Needed Additional Instructions: As discussed, the xrays of your elbow did not show any fractures. Use rest, ice, elevation, and compression with an anthony wrap to help relieve pain. If pain does not resolve, follow up with your PCP or orthopedics as listed below. Return or go to the emergency room if pain worsens, the arm or hand becomes cold and numb, or you are not able to move your elbow, arm, or hand. - Billing Disposition and Condition Condition: STABLE Disposition: Home - Attestation Statements Provider Attestation: Per institutional requirements, I have reviewed the chart, however, I was not consulted specifically or made aware of this patient by the midlevel provider. I did not personally evaluate, interact with , or disposition this patient.
== END 2019-01-05 15:49 | disposition home or self-care (01) ==
LOC: UCEAST 14:47
DX: S50.01XA Contusion of right elbow, initial encounter (principal); Z88.1 Allergy status to other antibiotic agents; Z91.018 Allergy to other foods; Z88.5 Allergy status to narcotic agent; Z88.2 Allergy status to sulfonamides; W01.0XXA Fall on same level from slipping, tripping and stumbling without subsequent striking against object, initial encounter; Y92.9 Unspecified place or not applicable
CPT/HCPCS: 99211; G0463

== ENCOUNTER 2019-03-21 12:59 | Emergency (ER) | payer OTHER ==
--- NOTE | 2019-03-21 13:12 | ED ---
Abdominal Pain/Female - HPI Summary HPI Summary: This pt is a 33 y/o female presenting to [facility] c/o intermittent abd pain for a couple of weeks now, worse today. Pt states she has abd pain after eating food. However notes it's not every time she eats. She notes this week her abd pain has been more frequent. Pt describes abd pain after 15 minutes of eating and lasting generally 2 hours. Pt endorses nausea and chills. Denies fever, vomiting. She describes an inability to have a bowel movement, not necessarily "hard." Denies sour taste in mouth. Last night pt had mac and cheese with a lot of vegetables. Pt states she has never had this in the past. She had lower abd pain for a long time but changed her eating habits and that seemed to help. Pt reports she doesn't tolerate pastas very well and doesn't tolerate oranges at all. Once she drank orange juice and the next day she had abd pain and was drenched in sweat. Pt reports father with same symptoms and was found to have a "mass" in his colon. LMP: this past month. PMHx: sleep apnea. She is on Duloxetine for numbness and tingling in arms and legs. She has had autoimmune disease testing and states it was negative. Allergic to Clindamycin, oxycodone, sulfa. Medications reviewed. Allergies noted. - History of Current Complaint Chief Complaint: EDAbdPain Stated Complaint: ABD PAIN PER PT Time Seen by Provider: 03/21/19 13:04 Hx Obtained From: Patient Hx Last Menstrual Period: 12/11/2018 Onset/Duration: Lasting Weeks - 2, Still Present Timing: Weeks - 2 Severity Currently: Severe Pain Intensity: 8 Pain Scale Used: 0-10 Numeric Location: Diffuse Radiates: No Aggravating Factor(s): Food Alleviating Factor(s): Nothing Associated Signs and Symptoms: Negative: Fever Allergies/Adverse Reactions: Allergies Allergy/AdvReac Type Severity Reaction Status Date / Time clindamycin Allergy Severe rash, Verified 03/21/19 13:01 hives, full body orange juice Allergy Severe diaRRHEA, Verified 03/21/19 13:01 ABDPAIN oxycodone Allergy Anaphylatic Verified 03/21/19 13:01 Shock Sulfa (Sulfonamide Allergy Hallucinati Verified 03/21/19 13:01 Antibiotics) ons PMH/Surg Hx/FS Hx/Imm Hx Endocrine/Hematology History: Denies: Hx Anticoagulant Therapy, Hx Diabetes, Hx Thyroid Disease Cardiovascular History: Denies: Hx Hypertension, Hx Pacemaker/ICD, Other Cardiovascular Problems/ Disorders Respiratory History: Reports: Hx Sleep Apnea Denies: Hx Asthma, Hx Chronic Obstructive Pulmonary Disease (COPD), Other Respiratory Problems/Disorders GI History: Denies: Hx Ulcer, Other GI Disorders History: Reports: Hx Kidney Stones - UNSURE WHEN Denies: Hx Renal Disease Musculoskeletal History: Denies: Other Musculoskeletal History Sensory History: Reports: Hx Contacts or Glasses - GLASSES Denies: Hx Hearing Aid Opthamlomology History: Reports: Hx Contacts or Glasses - GLASSES Neurological History: Denies: Hx Dementia, Hx Seizures, Other Neuro Impairments/Disorders Psychiatric History: Reports: Hx Anxiety - RECENT, Hx Panic Disorder - ANXIETY Denies: Hx Substance Abuse - Surgical History Surgical History: Yes Surgery Procedure, Year, and Place: 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 ADENOIDECTOMY A CHILD. RIGHT HAND, 12/10/14, [facility] and a second hand surgery Hx Anesthesia Reactions: No Infectious Disease History: No Infectious Disease History: Denies: Hx Clostridium Difficile, Hx Hepatitis, Hx Human Immunodeficiency Virus (HIV), Hx of Known/Suspected MRSA, Hx Shingles, Hx Tuberculosis, Hx Known/ Suspected VRE, Hx Known/Suspected VRSA, History Other Infectious Disease, Traveled Outside the [place] in Last 30 Days - Family History Known Family History: Positive: Cardiac Disease, Diabetes, Other - Asthma - Social History Occupation: Employed Full-time - works in horse farm Alcohol Use: None Alcohol Amount: 1 Q 6 MONTHS Hx Substance Use: Yes Substance Use Type: Reports: Marijuana Substance Use Comment - Amount & Last Used: daily Hx Tobacco Use: No Smoking Status (MU): Never Smoked Tobacco Have You Smoked in the Last Year: No Review of Systems Positive: Chills. Negative: Fever Positive: Abdominal Pain, Diarrhea, Nausea. Negative: Vomiting All Other Systems Reviewed And Are Negative: Yes Physical Exam - Summary Physical Exam Summary: Constitutional: Well-developed, Well-nourished, Alert. (-) Distressed Skin: Warm, Dry HENT: Normocephalic; Atraumatic Eyes: Conjunctiva normal Neck: Musculoskeletal ROM normal neck. (-) JVD, (-) Stridor, (-) Tracheal deviation Cardio: Rhythm regular, rate normal, Heart sounds normal; Intact distal pulses; The pedal pulses are 2+ and symmetric. Radial pulses are 2+ and symmetric. (-) Murmur Pulmonary/Chest wall: Effort normal. (-) Respiratory distress, (-) Wheezes, (-) Rales Abd: Soft, upper abdominal tenderness worse in the epigastrium but no rebound or guarding, (-) Distension Musculoskeletal: (-) Edema Lymph: (-) Cervical adenopathy Neuro: Alert, Oriented x3 Psych: Mood and affect Normal Triage Information Reviewed: Yes Vital Signs On Initial Exam: Initial Vitals Temp Pulse Resp BP Pulse Ox 98.6 F 101 20 122/75 100 03/21/19 13:01 03/21/19 13:01 03/21/19 13:01 03/21/19 13:01 03/21/19 13:01 Vital Signs Reviewed: Yes Procedures - Sedation Patient Received Moderate/Deep Sedation with Procedure: No Diagnostics - Vital Signs Vital Signs Temp Pulse Resp BP Pulse Ox 03/21/19 13:01 98.6 F 101 20 122/75 100 - Laboratory Result Diagrams: 03/21/19 13:23 03/21/19 13:23 Lab Statement: Any lab studies that have been ordered have been reviewed, and results considered in the medical decision making process. - Ultrasound No standard instances Ultrasound Interpretation Completed By: Radiologist Summary of Ultrasound Findings: Gallbladder US IMPRESSION: Homogenously increased echogenicity of the liver parenchyma could be seen in the setting of hepatic steatosis in this otherwise nonacute right upper quadrant ultrasound. Dr. Hanks has reviewed this report. Re-Evaluation - Re-Evaluation First Eval Re-Evaluation Time: 14:43 Comment: Patient is asymptomatic now. She will be discharged home. Abdominal Pain Fem Course/Dx - Course Course Of Treatment: Patient is here with epigastric pain that comes after eating certain foods. Patient cannot pinpoint a pattern to her symptoms. Patient's had similar symptoms in the past. Patient had blood performed grossly unremarkable. Patient had an ulceration evidence of gallbladder disease. Patient had a normal CRP. Patient's was given Maalox improvement in her symptoms. Patient was asymptomatic at the time of discharge. Patient was started on omeprazole as a trial. - Diagnoses Provider Diagnoses: Epigastric pain Discharge ED - Sign-Out/Discharge Documenting (check all that apply): Patient Departure - Discharge home - Discharge Plan Condition: Stable Disposition: HOME Prescriptions: Omeprazole 20 mg PO QAM 14 Days #14 capsule. Patient Education Materials: Epigastric Pain (ED) Referrals: Jaswinder Carroll MD [Primary Care Provider] - Additional Instructions: Keep doing the diet we talked about. Try taking Omeprazole which was prescribed. PLEASE RETURN TO EMERGENCY DEPARTMENT IF YOU HAVE SEVERE ABDOMINAL PAIN LASTING LONGER THAN EPISODES YOU'VE BEEN HAVING, VOMITING THAT DOESN'T GO AWAY, AND OTHER CONCERNING SYMPTOMS. Please follow up with your primary care physician. Please make all follow-ups in 1-3 days unless I advise you otherwise. - Billing Disposition and Condition Condition: STABLE Disposition: Home - Attestation Statements Document Initiated by Elizabeth: Yes Documenting Scribe: Alla Gray Provider For Whom Elizabeth is Documenting (Include Credential): Rubin Hanks MD Scribe Attestation: Alla Cosby, scribed for Rubin Hanks MD on 03/21/19 at 1657. Scribe Documentation Reviewed: Yes Provider Attestation: The documentation as recorded by the Alla giraldo accurately reflects the service I personally performed and the decisions made by me, Rubin Hanks MD Status of Scribe Document: Viewed
[2019-03-21] MEDS ORDERED: Al Hydrox/Mg Hydrox/Simet LIQ* 30 ML UDC PO ONE (13:15)
[2019-03-21 13:30] LABS: ABS Basophils 0.1 10^3/ul (0-0.2); ABS Eosinophils 0.1 10^3/ul (0-0.6); ABS Monocytes 0.4 10^3/ul (0-0.8); ABS Neutrophils 1.9 10^3/ul (1.5-7.7); Eosinophil % 3.1 %; Hematocrit 38 % (35-47); Lymphocyte % 44.4 %; Mean Corpuscular HGB Conc 35 g/dL (31-36); Mean Corpuscular Hemoglobin 32 pg (27-31); Mean Corpuscular Volume 92 fL (80-97); Mean Platelet Volume 8.8 fL (7.4-10.4); Platelet Count 219 10^3/uL (150-450); Red Blood Count 4.12 10^6 /uL (3.70-4.87); Red Cell Distribution Width 13 % (10-15); White Blood Count 4.6 10^3/uL (3.5-10.8)
[2019-03-21 13:47] LABS: ALT 36 U/L (7-52); AST 26 U/L (13-39); Albumin 4.4 g/dL (3.2-5.2); Albumin/Globulin Ratio 1.6 (1-3); Alkaline Phosphatase 98 U/L (34-104); Anion Gap 7 mmol/L (2-11); BUN/Creatinine Ratio 18.1 (8-20); Blood Urea Nitrogen 13 mg/dL (6-24); CO2 Carbon Dioxide 25 mmol/L (22-32); Calcium 9.8 mg/dL (8.6-10.3); Chloride 104 mmol/L (101-111); EGFR African American 112.9 (>60); EGFR Non-African American 93.3 (>60); Globulin 2.7 g/dL (2-4); Glucose 98 mg/dL (70-100); Potassium 3.4 mmol/L (3.5-5.0); Sodium 136 mmol/L (135-145); Total Protein 7.1 g/dL (6.4-8.9)
[2019-03-21 13:50] LABS: Urine Appearance Clear; Urine Bilirubin Negative (Negative); Urine Blood Negative (Negative); Urine Color Yellow; Urine Glucose Negative (Negative); Urine Ketones Negative (Negative); Urine Nitrite Negative (Negative); Urine Protein Negative (Negative); Urine Specific Gravity 1.012 (1.010-1.030); Urine Urobilinogen Negative (Negative)
[2019-03-21 13:54] LABS: HCG Pregnancy < 0.60 mIU/mL
[2019-03-21 14:28] LABS: C Reactive Protein < 1.00 mg/L (<8.01)
[2019-03-21 15:11] VITALS: BP 103/69
== END 2019-03-21 14:50 | disposition home or self-care (01) ==
LOC: ED 12:59
DX: R10.13 Epigastric pain (principal); R19.7 Diarrhea, unspecified; R11.0 Nausea; F41.9 Anxiety disorder, unspecified; Z88.2 Allergy status to sulfonamides
CPT/HCPCS: 36415; 76705; 80053; 81003; 83690; 84702; 85025; 86140; 99282; A9270-GY